=== PATIENT | male | born 1975 | race Caucasian/White ===

== ENCOUNTER 2019-10-20 17:00 | Emergency (ER) | payer OTHER, SELFPAY ==
[2019-10-20] VITALS (27 sets, daily range): BP systolic 122–150; BP diastolic 70–88; PULSE 61–82; RESP 14–24; TEMP 36.7–37.1; O2SAT 93–100
[2019-10-20] MEDS: methylPREDNISolone SUCC 125 MG VIAL IVP (17:05)
[2019-10-20] MEDS: Normal Saline 1,000 ML 1000 ML IV (17:05)
[2019-10-20] MEDS: diphenhydrAMINE 50 MG/ML VIAL IVP (17:05)
--- NOTE | 2019-10-20 17:14 | W.ED.GENAD ---
Discharge Plan Disposition Patient Disposition: HOME Condition: Improving Discharge Details Chief Complaint: Allergic Clinical Impression: Allergic reaction to bee sting Primary Care Provider: Sandra Radford ED Provider: Crystal Jacob Home Meds and New Rx's Prescriptions: New prednisone 20 mg tablet See Rx Instructions .ROUTE .COMPLEX Qty: 12 RF: 0 epinephrine 0.3 mg/0.3 mL auto-injector 0.3 ml SC ONCE PRN (Reason: anaphylaxis) Qty: 2 RF: 0 Continued ibuprofen [Advil] 200 mg Tablet 400 mg PO Q6H PRNRF: 0 loratadine [Claritin] 10 mg Tablet 10 mg PO DAILY PRNRF: 0 Discharge Instructions Instructions: Insect Bite or Sting (ED) Additional Instructions: Drink plenty of fluids and get plenty of rest. Take the steroids until finished. Take Benadryl as needed and directed for itching. Follow-up with your primary care doctor in 1 week as needed. Return to the emergency department with any worsening or new concerning symptoms. Discharge Data Discharge Physician: Crystal Jacob Medical Decision Making 1705 -- 44-year-old male presents for diffuse pruritic urticaria that started 1 hour status post 1 bee sting to his left thigh. Vitals within normal limits. No oral, respiratory or GI involvement. Rash noted to be worsening within minutes of arrival. Patient had stat IV, Solu-Medrol, Benadryl, Pepcid and bolus IV fluids given immediately. Within minutes he felt symptomatic improvement. 1810 --patient feels much better. Rash near resolving. No oral or respiratory symptoms. Will finish IV fluids and reassess. 1900 --patient reassessed and feels much better and is requesting to go home. Rash resolved. He has no oral or respiratory symptoms. Vitals within normal limits. We will send home with EpiPen as well as prescription for EpiPen and prednisone. Advised to follow up with the primary care doctor for re-evaluation. Usual and customary return precautions given prior to discharge. HPI General Mode of arrival: ambulatory. Date/Time Provider Initiated Documentation: 10/20/19 17:02. Limitations to Documentation: no limitations. Information obtained by: patient. HPI Narrative: Patient is a 44-year-old male who presents for diffuse itchy body rash that started 1 hour after 1 bee sting to his left thigh. Patient states he was outside when he was stung by 1 yellowjacket to his left thigh. He was able to remove the stinger completely. He took Claritin and Advil and then rash became significantly worse around his face with swelling. He denies any throat swelling or itching, coughing, wheezing, difficulty breathing, nausea, vomiting, abdominal pain. He denies any history of anaphylaxis to bees. Related Data Home Medications Medication Instructions Recorded Confirmed epinephrine 0.3 ml SC ONCE PRN #2 each 10/20/19 ibuprofen [Advil] 400 mg PO Q6H PRN 10/20/19 10/20/19 loratadine [Claritin] 10 mg PO DAILY PRN 10/20/19 10/20/19 prednisone See Rx Instructions .ROUTE 10/20/19 .COMPLEX #12 tab Previous Rx's Medication Instructions Recorded epinephrine 0.3 ml SC ONCE PRN #2 each 10/20/19 prednisone See Rx Instructions .ROUTE 10/20/19 .COMPLEX #12 tab Allergies Allergy/AdvReac Type Severity Reaction Status Date / Time venom-wasp Allergy Anaphylaxsi Unverified 10/20/19 17:14 s General Stated Complaint: Allergic COSMO: 2 Review of Systems All systems reviewed & are unremarkable except as noted in HPI and below Constitutional Constitutional: Reports as per HPI, Denies chills and Denies fever(s) Eyes Eyes: Denies blurry vision ENT Ears, Nose, Mouth, and Throat: Denies dizziness, Denies sore throat and Denies throat swelling Cardiovascular Cardiovascular: Denies chest pain and Denies dyspnea Respiratory Respiratory: Denies cough and Denies dyspnea Gastrointestinal Gastrointestinal: Denies abdominal pain, Denies diarrhea and Denies vomiting Genitourinary Genitourinary: Denies hematuria and Denies dysuria Musculoskeletal Musculoskeletal: Denies back pain and Denies numbness Integumentary/Breasts Skin/Breast: Denies lesions and Reports rash Neurologic Neurologic: Denies dizziness, Denies localized weakness and Denies numbness Allergic/Immunologic Allergic/Immunologic: Denies throat swelling [facility] Medical History (Updated 10/20/19 @ 18:25 by Crystal Jacob DO) No pertinent past medical history (Acute) Surgical History (Updated 10/20/19 @ 17:15 by Annia Morris) No pertinent past surgical history (Acute) Social History Smoking/Tobacco Use Status: Former Tobacco Use Alcohol Intake: current Alcohol Intake frequency: 0-2 drinks per day Alcohol type: beer Drug use: Never Substance use type: does not use Do you feel safe at home: Yes Do you feel safe in your relationship?: Yes Exam Const General: cooperative and healthy appearing Orientation: alert, awake and oriented x3 HENMT Head: normal to inspection and normocephalic Ears: hearing grossly normal bilaterally, external ears normal and TM's normal bilaterally General nose exam: external nose normal Face and sinus: erythema (diffuse facial erythema and edema) Mouth: oral mucosae normal Teeth and gingiva: dentition normal Throat: posterior oropharynx normal Eyes General: appearance normal, both eyes and all related structures Eyelids: other (b/l upper and lower eyelid edema and erythema) Pupils: PERRL EOM: EOM intact bilaterally Neck Neck: normal visual inspection Lymphatic: no lymphadenopathy noted Chest Chest: normal inspection of the chest Resp Effort & Inspection: normal respiratory effort and able to speak in complete sentences Auscultation: clear to auscultation bilaterally Cardio Rate: regular rate Rhythm: regular rhythm GI Inspection: normal to inspection Palpation: soft, not firm, no guarding, no hepatosplenomegaly, no masses and nontender Auscultation: normal bowel sounds Skin General skin exam: erythema Rashes: rashes noted (diffuse urticaria noted to trunk, b/l UE/LE) Neuro General: patient alert and patient awake Cognition: normal cognition Speech: speech normal Gait: normal gait Motor: muscle tone normal throughout Sensory Exam: no sensory deficits noted Extrem General: normal to inspection, full ROM and capillary refill normal Psych Appearance: grossly normal Mental Status: mental status grossly normal Speech and Movement: speech and movement normal Affect: normal affect Thought Process: normal Course Vital Signs Vital signs: Vital Signs Pulse 73 10/20/19 17:11 Respiratory Rate 15 10/20/19 17:11 Blood Pressure 147/88 H 10/20/19 17:11 Pulse Oximetry 97 10/20/19 17:11 Pulse 73 10/20/19 17:11 Respiratory Rate 15 10/20/19 17:11 Blood Pressure 147/88 H 10/20/19 17:11 Blood Pressure Position Sitting 10/20/19 17:11 Pulse Oximetry 97 10/20/19 17:11 Oxygen Delivery Method Room Air 10/20/19 17:11 Oxygen Flow Rate 0 10/20/19 17:11 Pain Level 0 08/11/20 17:11
[2019-10-20] MEDS: FAMOTIDINE 20 MG/50 ML BAG 200 MG IVPB (17:32)
== END 2019-10-20 19:45 | disposition home or self-care (01) ==
PROVIDERS: Emergency Provider Physician Assistant; PCP Nurse Practitioner Family
DX: T63.451A Toxic effect of venom of hornets, accidental (unintentional), initial encounter (principal); L50.0 Allergic urticaria; L29.8 Other pruritus; R22.0 Localized swelling, mass and lump, head
CPT/HCPCS: 96361; 96365; 96375; 99284; J1200; J2930